=== PATIENT | female | born 1990 | race Caucasian/White ===

== ENCOUNTER 2019-12-31 16:52 | Emergency (ER) | payer OTHER ==
[~2019-12-31] VITALS: Ht 167.6 cm; Wt 169.6 kg
[2019-12-31 17:15] VITALS: BP 148/99; Ht 167.6 cm; Wt 169.6 kg
== END 2019-12-31 17:51 | disposition home or self-care (01) ==
LOC: ED 16:52
DX: H66.91 Otitis media, unspecified, right ear (principal); E11.9 Type 2 diabetes mellitus without complications